=== PATIENT | female | born 1955 | race African-American/Black ===

== ENCOUNTER → 2017-05-27 | Outpatient (CLI) | payer OTHER | END | disposition home or self-care (01) | LOC: NM 08:35 | PROVIDERS: ATTEND Urology | DX: D36.7 Benign neoplasm of other specified sites (principal); E83.52 Hypercalcemia | CPT/HCPCS: 78070; A9500 ==

== ENCOUNTER 2018-08-13 12:35 | Inpatient (IN) | payer MEDICARE, OTHER ==
[~2018-08-13] VITALS: Ht 160 cm; Wt 94.3 kg
[2018-08-13] MEDS ORDERED: VERA120C3 PO (12:42)
[2018-08-13] MEDS ORDERED: SODIUM CHLORIDE 0.9% 1,000 ML IV ONE (13:21)
[2018-08-13] MEDS ORDERED: ONDANSETRON HCL 4MG/2ML INJ IV STA (13:21)
[2018-08-13] MEDS ORDERED: MORPHINE SULFATE 10 MG/ML CPJ IV ONE (13:30)
[2018-08-13 15:27] LABS: CHLORIDE 108 mEq/L (98-107); LYMPHOCYTES % 10.8 % (20.0-50.0); MEAN CORPUSCULAR HEMOGLOBIN 16.6 pg (28.0-32.0); MEAN CORPUSCULAR VOLUME 60.6 fL (81.0-99.0); MEAN PLATELET VOLUME 6.3 fl (7.4-10.4); MONOCYTES % 3.3 % (2.0-8.0); NEUTROPHILS % 85.9 % (40.0-76.0); PLATELET 670 x1000/uL (130-400); RED BLOOD CELL COUNT 4.13 mill/uL (4.2-5.4); RED CELL DISTRIBUTION WIDTH 23.7 % (11.6-14.6)
[2018-08-13 15:33] LABS: HEMOGLOBIN. 6.8 g/dL (12.0-16.0); INR 1.1; PARTIAL THROMBOPLASTIN TIME 22.5 sec (23.4-31.0); PROTHROMBIN TIME 10.9 sec (9.1-11.1)
[2018-08-13 15:53] LABS: PLATELET ESTIMATE INCREASED
[2018-08-13] MEDS ORDERED: VANCOMYCIN 1 G PREMIX 200 ML IV SCH (16:30)
[2018-08-13] MEDS ORDERED: PIPERACILLIN/TAZ 3.375G PREMIX 50 ML IV ONE (16:30)
[2018-08-13] MEDS ORDERED: PIPERACILLIN/TAZOBACTAM 3.375GM/50ML PREMIX IV ONE (19:00)
[2018-08-13] MEDS ORDERED: PIPERACILLIN/TAZ 3.375G PREMIX 50 ML IV SCH (19:10)
[2018-08-14] VITALS (13 sets, daily range): BP systolic 110–147; BP diastolic 45–75
[2018-08-14] MEDS ORDERED: ASPI-1159 PO (01:05)
[2018-08-14] MEDS ORDERED: MAGNESIUM HYDROXIDE 400MG/5ML 30ML UDC PO PRN (01:30)
[2018-08-14] MEDS ORDERED: ZOLPIDEM TARTRATE 5MG TABLET PO PRN (01:30)
[2018-08-14] MEDS ORDERED: ACETAMINOPHEN 325MG TABLET PO PRN (01:30)
[2018-08-14] MEDS ORDERED: IPRATROPIUM/ALBUTEROL 0.5-3(2.5)MG/3ML NEB HHN PRN (01:30)
[2018-08-14] MEDS: MORPHINE SULFATE 4 MG/ML CPJ (NOT FOR IM USE) IV PRN ×3 (01:38→11:18)
[2018-08-14] MEDS: ONDANSETRON HCL 4MG/2ML INJ IV PRN (02:24)
[2018-08-14] MEDS: LEVOFLOXACIN 250MG PREMIX 50 ML IV SCH (02:37)
[2018-08-14] MEDS: VERAPAMIL HCL 120MG TABLET PO SCH ×2 (11:18→21:38)
[2018-08-14] MEDS ORDERED: NYSTATIN POWDER 15GM TOP SCH (12:00)
[2018-08-14] MEDS: NYSTATIN POWDER 15GM TOP SCH ×2 (14:51→21:39)
[2018-08-14 18:19] LABS: HEMATOCRIT 24.3 % (36.0-48.0); HEMOGLOBIN 7.1 g/dL (12.0-16.0)
[2018-08-15] VITALS (13 sets, daily range): BP systolic 108–130; BP diastolic 49–79
[2018-08-15] MEDS: MORPHINE SULFATE 4 MG/ML CPJ (NOT FOR IM USE) IV PRN ×3 (01:04→20:40)
[2018-08-15] MEDS: LEVOFLOXACIN 250MG PREMIX 50 ML IV SCH (02:23)
[2018-08-15 06:14] LABS: BASOPHILS % 0.1 % (0.0-2.0); EOSINOPHILS % 0.3 % (0.0-5.0); HEMATOCRIT. 21.9 % (36.0-48.0); LYMPHOCYTES % 9.4 % (20.0-50.0); MEAN CORPUSCULAR HEMOGLOBIN 18.8 pg (28.0-32.0); MEAN CORPUSCULAR VOLUME 64.5 fL (81.0-99.0); MEAN PLATELET VOLUME 6.3 fl (7.4-10.4); MONOCYTES % 5.9 % (2.0-8.0); NEUTROPHILS % 84.3 % (40.0-76.0); PLATELET 421 x1000/uL (130-400); RED CELL DISTRIBUTION WIDTH 28.2 % (11.6-14.6)
[2018-08-15] MEDS: NYSTATIN POWDER 15GM TOP SCH ×3 (06:31→22:43)
[2018-08-15 07:36] LABS: CHLORIDE 107 mEq/L (98-107)
[2018-08-15 08:18] LABS: HEMOGLOBIN. 6.4 g/dL (12.0-16.0)
[2018-08-15] MEDS: VERAPAMIL HCL 120MG TABLET PO SCH ×2 (08:57→20:40)
[2018-08-15] MEDS: PANTOPRAZOLE SODIUM 40 MG/VIAL IV SCH (10:32)
[2018-08-15] MEDS ORDERED: SODIUM BICARBONATE 4% (2.4MEQ) 5ML VIAL IV ONE (10:45)
[2018-08-15] MEDS ORDERED: LIDOCAINE HCL 1% 20ML VIAL (Pyxis) INJ ONE (10:45)
[2018-08-15 18:53] LABS: TOTAL IRON BINDING CAPACITY 217 ug/dL (250-450)
[2018-08-15] MEDS ORDERED: NA PHOS,M-B/NA PHOS,DI-BA ENEMA 118ML PR NR (19:30)
[2018-08-15 20:30] LABS: EOSINOPHILS % 0.2 % (0.0-5.0); HEMATOCRIT. 28.1 % (36.0-48.0); HEMOGLOBIN. 8.4 g/dL (12.0-16.0); MEAN CORPUSCULAR HEMOGLOBIN 21.3 pg (28.0-32.0); MEAN PLATELET VOLUME 8.2 fl (7.4-10.4); MONOCYTES % 7.1 % (2.0-8.0); NEUTROPHILS % 83.7 % (40.0-76.0); PLATELET 293 x1000/uL (130-400); RED BLOOD CELL COUNT 3.96 mill/uL (4.2-5.4); RED CELL DISTRIBUTION WIDTH 32.8 % (11.6-14.6)
[2018-08-15 21:37] LABS: FOLIC ACID (FOLATE) SERUM 2.9 ng/mL (>5.38); PLATELET ESTIMATE NORMAL
[2018-08-16] VITALS: BP 122/47
[2018-08-16] MEDS: MORPHINE SULFATE 4 MG/ML CPJ (NOT FOR IM USE) IV PRN ×5 (01:40→21:33)
[2018-08-16] MEDS: LEVOFLOXACIN 250MG PREMIX 50 ML IV SCH (02:29)
[2018-08-16 04:00] VITALS: BP 122/67
[2018-08-16 06:44] LABS: HEMATOCRIT. 27.5 % (36.0-48.0); HEMOGLOBIN. 8.6 g/dL (12.0-16.0); MEAN CORPUSCULAR HEMOGLOBIN 21.8 pg (28.0-32.0); MEAN CORPUSCULAR VOLUME 69.9 fL (81.0-99.0); MEAN PLATELET VOLUME 8.2 fl (7.4-10.4); PLATELET 253 x1000/uL (130-400); RED BLOOD CELL COUNT 3.94 mill/uL (4.2-5.4); RED CELL DISTRIBUTION WIDTH 32.6 % (11.6-14.6)
[2018-08-16 06:46] LABS: INR 1.1; PARTIAL THROMBOPLASTIN TIME 25.2 sec (23.4-31.0); PROTHROMBIN TIME 11.4 sec (9.1-11.1)
[2018-08-16 06:53] LABS: CHLORIDE 108 mEq/L (98-107)
[2018-08-16] MEDS: NYSTATIN POWDER 15GM TOP SCH ×3 (07:12→21:20)
[2018-08-16 08:00] VITALS: BP 142/74
[2018-08-16] MEDS: PANTOPRAZOLE SODIUM 40 MG/VIAL IV SCH (11:49)
[2018-08-16] MEDS: VERAPAMIL HCL 120MG TABLET PO SCH ×2 (11:50→20:38)
[2018-08-16 12:00] VITALS: BP 123/62
[2018-08-16 14:12] LABS: CLARITY URINE CLEAR (CLEAR); COLOR URINE YELLOW (YELLOW); KETONES URINE NEGATIVE (NEGATIVE); LEUKOCYTE ESTERASE URINE NEGATIVE (NEGATIVE); NITRITE URINE NEGATIVE (NEGATIVE); OCCULT BLOOD URINE NEGATIVE (NEGATIVE); PROTEIN URINE NEGATIVE (NEGATIVE); SPECIFIC GRAVITY URINE 1.022 (1.005-1.030); UROBILINOGEN URINE 0.2 E.U./dL (0.2-1.0)
[2018-08-16 14:19] LABS: PLATELET ESTIMATE NORMAL
[2018-08-16 16:00] VITALS: BP_SYST 116; BP_SYST 141; BP_DIAS 57; BP_DIAS 78
[2018-08-16] MEDS ORDERED: SORBITOL 70% SOLN 30ML PO NR ×3 (16:00→23:30)
[2018-08-16 20:00] VITALS: BP 117/69
[2018-08-16] MEDS: ONDANSETRON HCL 4MG/2ML INJ IV PRN (21:37)
[2018-08-17] VITALS (7 sets, daily range): BP systolic 117–135; BP diastolic 41–81
[2018-08-17] MEDS: LEVOFLOXACIN 250MG PREMIX 50 ML IV SCH (02:33)
[2018-08-17] MEDS: MORPHINE SULFATE 4 MG/ML CPJ (NOT FOR IM USE) IV PRN ×5 (02:54→22:48)
[2018-08-17] MEDS ORDERED: NA PHOS,M-B/NA PHOS,DI-BA ENEMA 118ML PR NR (05:00)
[2018-08-17] MEDS: NYSTATIN POWDER 15GM TOP SCH ×3 (05:47→22:08)
[2018-08-17 06:54] LABS: EOSINOPHILS % 0.1 % (0.0-5.0); HEMATOCRIT. 29.8 % (36.0-48.0); LYMPHOCYTES % 7.2 % (20.0-50.0); MEAN CORPUSCULAR HEMOGLOBIN 21.5 pg (28.0-32.0); MEAN CORPUSCULAR VOLUME 71.2 fL (81.0-99.0); MEAN PLATELET VOLUME 8.1 fl (7.4-10.4); MONOCYTES % 6.4 % (2.0-8.0); NEUTROPHILS % 86.3 % (40.0-76.0); PLATELET 214 x1000/uL (130-400); RED BLOOD CELL COUNT 4.18 mill/uL (4.2-5.4); RED CELL DISTRIBUTION WIDTH 33.7 % (11.6-14.6)
[2018-08-17 07:01] LABS: INR 1.1; PARTIAL THROMBOPLASTIN TIME 27.4 sec (23.4-31.0); PROTHROMBIN TIME 11.3 sec (9.1-11.1)
[2018-08-17 07:08] LABS: CHLORIDE 113 mEq/L (98-107)
[2018-08-17 07:23] LABS: PHOSPHORUS 2.9 mg/dL (2.5-4.9)
[2018-08-17] MEDS: VERAPAMIL HCL 120MG TABLET PO SCH ×2 (09:00→22:08)
[2018-08-17] MEDS: FOLIC ACID 1MG TABLET PO SCH (09:00)
[2018-08-17] MEDS: PANTOPRAZOLE SODIUM 40 MG/VIAL IV SCH (09:24)
[2018-08-17] MEDS ORDERED: SIMETHICONE 40 MG/0.6 ML 30ML ONE (11:28)
[2018-08-17] MEDS ORDERED: MIDAZOLAM HCL 5 MG/5 ML VIAL IV PRN (11:47)
[2018-08-17] MEDS ORDERED: FENTANYL CITRATE/PF 50MCG/ML 2ML VIAL IV PRN (11:48)
[2018-08-17] MEDS ORDERED: MIDAZOLAM HCL 5 MG/5 ML VIAL ONE (11:50)
[2018-08-17] MEDS ORDERED: FENTANYL CITRATE/PF 50MCG/ML 2ML VIAL ONE (11:50)
[2018-08-17] MEDS ORDERED: SORBITOL 70% SOLN 30ML PO NR ×2 (12:30→18:00)
[2018-08-17] MEDS ORDERED: POTASSIUM CHLORIDE 20MEQ TABLET SR PO NR (12:45)
[2018-08-17] MEDS: SODIUM CHL 0.45% + KCL 20MEQ/L 1,000 ML IV SCH (14:35)
[2018-08-17] MEDS ORDERED: SODIUM CHLORIDE 0.9% 10ML VIAL ONE (15:13)
[2018-08-17] MEDS ORDERED: BISACODYL 5MG TABLET PO NR (17:00)
[2018-08-18] MEDS: ONDANSETRON HCL 4MG/2ML INJ IV PRN ×3 (00:03→11:12)
[2018-08-18] MEDS: LEVOFLOXACIN 250MG PREMIX 50 ML IV SCH (03:20)
[2018-08-18] MEDS: SODIUM CHL 0.45% + KCL 20MEQ/L 1,000 ML IV SCH (03:20)
[2018-08-18] MEDS: MORPHINE SULFATE 4 MG/ML CPJ (NOT FOR IM USE) IV PRN ×4 (03:21→19:15)
[2018-08-18 03:56] VITALS: BP 148/99
[2018-08-18] MEDS: NYSTATIN POWDER 15GM TOP SCH ×2 (06:23→14:00)
[2018-08-18] MEDS ORDERED: OMEPRAZOLE 20MG CAPSULE EXTENDED RELEASE PO SCH (06:45)
[2018-08-18] MEDS ORDERED: SORBITOL 70% SOLN 30ML PO NR (07:00)
[2018-08-18 07:35] LABS: BASOPHILS % 0.1 % (0.0-2.0); EOSINOPHILS % 0.2 % (0.0-5.0); HEMATOCRIT. 32.4 % (36.0-48.0); HEMOGLOBIN. 9.4 g/dL (12.0-16.0); LYMPHOCYTES % 8.5 % (20.0-50.0); MEAN CORPUSCULAR HEMOGLOBIN 21.2 pg (28.0-32.0); MEAN CORPUSCULAR VOLUME 72.8 fL (81.0-99.0); MEAN PLATELET VOLUME 8.1 fl (7.4-10.4); MONOCYTES % 5.8 % (2.0-8.0); NEUTROPHILS % 85.4 % (40.0-76.0); PLATELET 184 x1000/uL (130-400); RED BLOOD CELL COUNT 4.45 mill/uL (4.2-5.4); RED CELL DISTRIBUTION WIDTH 34.1 % (11.6-14.6)
[2018-08-18 07:41] LABS: CHLORIDE 119 mEq/L (98-107)
[2018-08-18 08:00] VITALS: BP 148/90
[2018-08-18] MEDS: VERAPAMIL HCL 120MG TABLET PO SCH ×2 (09:12→20:24)
[2018-08-18] MEDS: FOLIC ACID 1MG TABLET PO SCH (09:12)
[2018-08-18] MEDS ORDERED: DEXTROSE 5% WATER 1,000 ML IV SCH (09:45)
[2018-08-18] MEDS: NA PHOS,M-B/NA PHOS,DI-BA ENEMA 118ML PR NR ×3 (10:45→10:57)
[2018-08-18 12:00] VITALS: BP 133/77
[2018-08-18] MEDS ORDERED: FENTANYL CITRATE/PF 50MCG/ML 2ML VIAL IV PRN (15:30)
[2018-08-18] MEDS ORDERED: MIDAZOLAM HCL 5 MG/5 ML VIAL IV PRN (15:31)
[2018-08-18] MEDS ORDERED: MIDAZOLAM HCL 5 MG/5 ML VIAL ONE (15:36)
[2018-08-18] MEDS ORDERED: SODIUM CHLORIDE 0.9% 10ML VIAL ONE (15:36)
[2018-08-18] MEDS ORDERED: FENTANYL CITRATE/PF 50MCG/ML 2ML VIAL ONE (15:36)
[2018-08-18 17:00] VITALS: BP 150/91
[2018-08-18] MEDS ORDERED: DOCUSATE SODIUM 100MG CAPSULE PO SCH (17:00)
[2018-08-18] MEDS ORDERED: FERROUS SULFATE 325MG TABLET PO SCH (17:15)
[2018-08-18 20:00] VITALS: BP 149/67
[2018-08-19 19:11] LABS: ANTI-NUCLEAR ANTIBODIES DIRECT Positive (Negative)
[2018-08-22 10:08] LABS: HGB A 98.4 % (96.4-98.8); HGB A2 1.6 % (1.8-3.2); HGB SOLUBILITY Negative (Negative)
== END 2018-08-18 20:55 | DRG 871 ==
LOC: ER 12:35 → 5WST 17:43 → EDBEDREQ 17:48 → EDBEDREQTM 17:48 → EDBEDREQ 17:50 → ENRESERV 18:31 → EDBEDREQ 18:46
PROVIDERS: ADMIT Specialist; ATTEND Specialist
PROC: 30233N1 Transfusion of Nonautologous Red Blood Cells into Peripheral Vein, Percutaneous Approach (ICD-10-PCS; principal; 2018-08-13)
PROC: 02HV33Z Insertion of Infusion Device into Superior Vena Cava, Percutaneous Approach (ICD-10-PCS; 2018-08-15)
PROC: B5181ZA Fluoroscopy of Superior Vena Cava using Low Osmolar Contrast, Guidance (ICD-10-PCS; 2018-08-15)
PROC: B548ZZA Ultrasonography of Superior Vena Cava, Guidance (ICD-10-PCS; 2018-08-15)
PROC: 0DB68ZX Excision of Stomach, Via Natural or Artificial Opening Endoscopic, Diagnostic (ICD-10-PCS; 2018-08-17)
PROC: 0DBL8ZX Excision of Transverse Colon, Via Natural or Artificial Opening Endoscopic, Diagnostic (ICD-10-PCS; 2018-08-18)
DX: A41.9 Sepsis, unspecified organism (principal); E43 Unspecified severe protein-calorie malnutrition; E87.0 Hyperosmolality and hypernatremia; E87.2 Acidosis; K22.10 Ulcer of esophagus without bleeding; K63.3 Ulcer of intestine; N20.9 Urinary calculus, unspecified; I10 Essential (primary) hypertension; J45.909 Unspecified asthma, uncomplicated; D64.9 Anemia, unspecified; D50.0 Iron deficiency anemia secondary to blood loss (chronic); E53.8 Deficiency of other specified B group vitamins; E88.09 Other disorders of plasma-protein metabolism, not elsewhere classified; K29.60 Other gastritis without bleeding; W18.30XA Fall on same level, unspecified, initial encounter; K44.9 Diaphragmatic hernia without obstruction or gangrene; K56.41 Fecal impaction; Z87.442 Personal history of urinary calculi; Z90.49 Acquired absence of other specified parts of digestive tract; Z90.5 Acquired absence of kidney; Y93.89 Activity, other specified; Z85.038 Personal history of other malignant neoplasm of large intestine; Y92.89 Other specified places as the place of occurrence of the external cause; Y99.8 Other external cause status; Z68.36 Body mass index [BMI] 36.0-36.9, adult
CPT/HCPCS: 36415; 36430; 36569; 71045; 72170; 73560; 74018; 76700; 76937; 77001; 80048; 82270; 82378; 82607; 82728; 82746; 83010; 83021; 83540; 83550; 83605; 83735; 83880; 84100; 84134; 84484; 85014; 85018; 85044; 85660; 86038; 86430; 86850; 86900; 86920; 88305; 88312; 88313; 93005; 93970; 96365; 96366; 96375; 97162; 97530; 99285; A6261; C1725; C9113; J1956; J2250; J2270; J2405; J2543; J3010; J3370; J3480; J3490; J7030; J7040; J7050; J7070; P9016

== ENCOUNTER 2018-08-18 20:40 | Inpatient (IN) | payer MEDICARE ==
[~2018-08-18] VITALS: Ht 160 cm; Wt 89.8 kg
[2018-08-18 20:40] VITALS: BP 125/80
[~2018-08-18 20:40] MED LIST: ASPI-1159 PO; VERA120C3 PO
[2018-08-18 20:50] VITALS: BP 125/80
[2018-08-18] MEDS ORDERED: IPRATROPIUM/ALBUTEROL 0.5-3(2.5)MG/3ML NEB HHN PRN (22:15)
[2018-08-18] MEDS ORDERED: ACETAMINOPHEN 325MG TABLET PO PRN (22:30)
[2018-08-18] MEDS ORDERED: MAGNESIUM HYDROXIDE 400MG/5ML 30ML UDC PO PRN (22:30)
[2018-08-18] MEDS ORDERED: ZOLPIDEM TARTRATE 5MG TABLET PO PRN (22:30)
[2018-08-18] MEDS ORDERED: DEXTROSE 5% WATER 1,000 ML IV SCH (23:30)
[2018-08-19] MEDS: MORPHINE SULFATE 4 MG/ML CPJ (NOT FOR IM USE) IV PRN ×4 (00:51→23:24)
[2018-08-19] MEDS ORDERED: LEVOFLOXACIN 250MG TABLET JT SCH (03:00)
[2018-08-19] MEDS: LEVOFLOXACIN 250MG PREMIX 50 ML IV SCH (03:33)
[2018-08-19] MEDS: NYSTATIN POWDER 15GM TOP SCH ×3 (06:00→22:26)
[2018-08-19] MEDS: OMEPRAZOLE 20MG CAPSULE EXTENDED RELEASE PO SCH (07:00)
[2018-08-19 08:00] VITALS: BP 165/69
[2018-08-19] MEDS: FOLIC ACID 1MG TABLET PO SCH (08:23)
[2018-08-19] MEDS: DOCUSATE SODIUM 100MG CAPSULE PO SCH ×2 (08:23→17:14)
[2018-08-19] MEDS: FERROUS SULFATE 325MG TABLET PO SCH ×2 (08:23→12:58)
[2018-08-19] MEDS ORDERED: FOLIC ACID 1MG TABLET PO SCH (10:00)
[2018-08-19 10:26] LABS: BASOPHILS % 0.1 % (0.0-2.0); EOSINOPHILS % 0.7 % (0.0-5.0); HEMATOCRIT. 28.6 % (36.0-48.0); HEMOGLOBIN. 8.7 g/dL (12.0-16.0); LYMPHOCYTES % 9.6 % (20.0-50.0); MEAN CORPUSCULAR HEMOGLOBIN 22.2 pg (28.0-32.0); MEAN CORPUSCULAR VOLUME 73.1 fL (81.0-99.0); MEAN PLATELET VOLUME 8.2 fl (7.4-10.4); MONOCYTES % 5.1 % (2.0-8.0); NEUTROPHILS % 84.5 % (40.0-76.0); PLATELET 136 x1000/uL (130-400); RED CELL DISTRIBUTION WIDTH 34.3 % (11.6-14.6)
[2018-08-19 10:37] LABS: CHLORIDE 114 mEq/L (98-107)
[2018-08-19] MEDS: VERAPAMIL HCL 120MG TABLET PO SCH ×2 (11:02→22:25)
[2018-08-19] MEDS: POTASSIUM CHLORIDE 20MEQ TABLET SR PO SCH (12:55)
[2018-08-19 13:37] LABS: CLARITY URINE TURBID (CLEAR); COLOR URINE DARK YELLOW (YELLOW); KETONES URINE NEGATIVE (NEGATIVE); LEUKOCYTE ESTERASE URINE 3+ (NEGATIVE); NITRITE URINE NEGATIVE (NEGATIVE); OCCULT BLOOD URINE 3+ (NEGATIVE); PROTEIN URINE 3+ (NEGATIVE); SPECIFIC GRAVITY URINE 1.022 (1.005-1.030)
[2018-08-19 20:00] VITALS: BP 127/51
[2018-08-20] MEDS: LEVOFLOXACIN 250MG PREMIX 50 ML IV SCH (02:38)
[2018-08-20] MEDS: NYSTATIN POWDER 15GM TOP SCH ×3 (06:00→21:22)
[2018-08-20] MEDS: OMEPRAZOLE 20MG CAPSULE EXTENDED RELEASE PO SCH (06:54)
[2018-08-20] MEDS: MORPHINE SULFATE 4 MG/ML CPJ (NOT FOR IM USE) IV PRN ×2 (06:55→18:41)
[2018-08-20 08:00] VITALS: BP 121/64
[2018-08-20] MEDS: FOLIC ACID 1MG TABLET PO SCH (09:54)
[2018-08-20] MEDS: VERAPAMIL HCL 120MG TABLET PO SCH ×2 (09:54→21:21)
[2018-08-20] MEDS: POTASSIUM CHLORIDE 20MEQ TABLET SR PO SCH (09:54)
[2018-08-20] MEDS: DOCUSATE SODIUM 100MG CAPSULE PO SCH ×2 (09:54→16:39)
[2018-08-20 20:00] VITALS: BP 130/54
[2018-08-21] MEDS: LEVOFLOXACIN 250MG PREMIX 50 ML IV SCH (02:51)
[2018-08-21] MEDS: MORPHINE SULFATE 4 MG/ML CPJ (NOT FOR IM USE) IV PRN ×3 (02:51→21:39)
[2018-08-21] MEDS: NYSTATIN POWDER 15GM TOP SCH ×3 (06:10→21:38)
[2018-08-21] MEDS: OMEPRAZOLE 20MG CAPSULE EXTENDED RELEASE PO SCH (06:10)
[2018-08-21 08:05] VITALS: BP 141/57
[2018-08-21] MEDS: POTASSIUM CHLORIDE 20MEQ TABLET SR PO SCH (09:14)
[2018-08-21] MEDS: FOLIC ACID 1MG TABLET PO SCH (09:15)
[2018-08-21] MEDS: VERAPAMIL HCL 120MG TABLET PO SCH ×2 (09:15→21:37)
[2018-08-21] MEDS: DOCUSATE SODIUM 100MG CAPSULE PO SCH (09:15)
[2018-08-21] MEDS: DOCUSATE SODIUM 250MG CAPSULE PO SCH (17:47)
[2018-08-21 20:00] VITALS: BP 126/64
[2018-08-21] MEDS: ONDANSETRON HCL 4MG/2ML INJ IV PRN (21:51)
[2018-08-22 06:22] VITALS: BP 108/58
[2018-08-22] MEDS: OMEPRAZOLE 20MG CAPSULE EXTENDED RELEASE PO SCH (06:28)
[2018-08-22] MEDS: NYSTATIN POWDER 15GM TOP SCH ×3 (06:29→22:19)
[2018-08-22 07:51] VITALS: BP 133/61
[2018-08-22] MEDS: POTASSIUM CHLORIDE 20MEQ TABLET SR PO SCH (08:20)
[2018-08-22] MEDS: ONDANSETRON HCL 4MG/2ML INJ IV PRN ×2 (08:20→14:24)
[2018-08-22] MEDS: FOLIC ACID 1MG TABLET PO SCH (08:20)
[2018-08-22] MEDS: VERAPAMIL HCL 120MG TABLET PO SCH ×2 (08:20→22:20)
[2018-08-22] MEDS: DOCUSATE SODIUM 250MG CAPSULE PO SCH ×2 (08:20→16:07)
[2018-08-22] MEDS: MORPHINE SULFATE 4 MG/ML CPJ (NOT FOR IM USE) IV PRN ×3 (08:21→22:19)
[2018-08-22] MEDS: LIDOCAINE HCL 4% CREAM 76GM TUBE TP SCH ×2 (11:43→16:07)
[2018-08-22 20:00] VITALS: BP 106/66
[2018-08-23] MEDS: MORPHINE SULFATE 4 MG/ML CPJ (NOT FOR IM USE) IV PRN (02:41)
[2018-08-23] MEDS: OMEPRAZOLE 20MG CAPSULE EXTENDED RELEASE PO SCH (06:28)
[2018-08-23] MEDS: NYSTATIN POWDER 15GM TOP SCH ×2 (06:45→13:07)
[2018-08-23 08:10] VITALS: BP 117/59
[2018-08-23] MEDS: VERAPAMIL HCL 120MG TABLET PO SCH ×2 (08:41→20:17)
[2018-08-23] MEDS: TRAMADOL 50MG TABLET PO PRN ×2 (08:41→18:46)
[2018-08-23] MEDS: ZINC SULFATE 220 MG ( 50 ) CAPSULE PO SCH (08:42)
[2018-08-23] MEDS: ASCORBIC ACID 250 MG TABLET PO SCH ×2 (08:42→20:16)
[2018-08-23] MEDS: FOLIC ACID 1MG TABLET PO SCH (08:42)
[2018-08-23] MEDS: POTASSIUM CHLORIDE 20MEQ TABLET SR PO SCH ×2 (08:42→16:37)
[2018-08-23] MEDS: MULTIVITAMINS,THER W-MINERALS TABLET PO SCH (08:42)
[2018-08-23] MEDS: DOCUSATE SODIUM 250MG CAPSULE PO SCH ×2 (08:42→16:37)
[2018-08-23] MEDS: LIDOCAINE HCL 4% CREAM 76GM TUBE TP SCH ×2 (08:43→16:37)
[2018-08-23 09:27] LABS: BASOPHILS % 0.3 % (0.0-2.0); EOSINOPHILS % 0.6 % (0.0-5.0); HEMATOCRIT. 25.7 % (36.0-48.0); HEMOGLOBIN. 7.9 g/dL (12.0-16.0); LYMPHOCYTES % 12.6 % (20.0-50.0); MEAN CORPUSCULAR HEMOGLOBIN 22.4 pg (28.0-32.0); MEAN PLATELET VOLUME 8.3 fl (7.4-10.4); MONOCYTES % 6.6 % (2.0-8.0); NEUTROPHILS % 79.9 % (40.0-76.0); PLATELET 222 x1000/uL (130-400); RED BLOOD CELL COUNT 3.53 mill/uL (4.2-5.4); RED CELL DISTRIBUTION WIDTH 34.6 % (11.6-14.6)
[2018-08-23 09:38] LABS: CHLORIDE 113 mEq/L (98-107)
[2018-08-23 10:23] LABS: PLATELET ESTIMATE NORMAL
[2018-08-23] MEDS ORDERED: BISACODYL 5MG TABLET PO PRN (17:00)
[2018-08-23 20:00] VITALS: BP 112/60
[2018-08-24] MEDS: TRAMADOL 50MG TABLET PO PRN (00:53)
[2018-08-24] MEDS: MORPHINE SULFATE 4 MG/ML CPJ (NOT FOR IM USE) IV PRN ×2 (01:00→11:19)
[2018-08-24] MEDS: NYSTATIN POWDER 15GM TOP SCH ×4 (02:57→22:00)
[2018-08-24] MEDS: OMEPRAZOLE 20MG CAPSULE EXTENDED RELEASE PO SCH (06:46)
[2018-08-24] MEDS: MULTIVITAMINS,THER W-MINERALS TABLET PO SCH (08:17)
[2018-08-24] MEDS: ZINC SULFATE 220 MG ( 50 ) CAPSULE PO SCH (08:17)
[2018-08-24] MEDS: POTASSIUM CHLORIDE 20MEQ TABLET SR PO SCH ×2 (08:17→17:38)
[2018-08-24] MEDS: VERAPAMIL HCL 120MG TABLET PO SCH ×2 (08:18→21:46)
[2018-08-24] MEDS: FOLIC ACID 1MG TABLET PO SCH (08:18)
[2018-08-24] MEDS: ASCORBIC ACID 250 MG TABLET PO SCH ×2 (08:21→21:43)
[2018-08-24] MEDS: LIDOCAINE HCL 4% CREAM 76GM TUBE TP SCH ×2 (08:21→17:38)
[2018-08-24] MEDS: DOCUSATE SODIUM 250MG CAPSULE PO SCH ×2 (08:21→17:38)
[2018-08-24 08:26] VITALS: BP 103/47
[2018-08-24] MEDS ORDERED: TRAMADOL 50MG TABLET PO PRN (13:45)
[2018-08-24 20:00] VITALS: BP_SYST 113; BP_SYST 127; BP_DIAS 60; BP_DIAS 66
[2018-08-24] MEDS: HYDROCODONE/ACETAMINOPHEN 5/325MG TABLET PO PRN (21:45)
[2018-08-25] MEDS: OMEPRAZOLE 20MG CAPSULE EXTENDED RELEASE PO SCH (07:17)
[2018-08-25] MEDS: NYSTATIN POWDER 15GM TOP SCH ×3 (07:17→21:39)
[2018-08-25] MEDS: MULTIVITAMINS,THER W-MINERALS TABLET PO SCH (08:29)
[2018-08-25] MEDS: VERAPAMIL HCL 120MG TABLET PO SCH ×2 (08:29→20:26)
[2018-08-25] MEDS: FOLIC ACID 1MG TABLET PO SCH (08:29)
[2018-08-25] MEDS: ASCORBIC ACID 250 MG TABLET PO SCH ×2 (08:29→20:26)
[2018-08-25] MEDS: DOCUSATE SODIUM 250MG CAPSULE PO SCH ×2 (08:29→18:13)
[2018-08-25] MEDS: POTASSIUM CHLORIDE 20MEQ TABLET SR PO SCH ×2 (08:30→18:13)
[2018-08-25] MEDS: LIDOCAINE HCL 4% CREAM 76GM TUBE TP SCH ×2 (08:30→18:13)
[2018-08-25] MEDS: ZINC SULFATE 220 MG ( 50 ) CAPSULE PO SCH (08:30)
[2018-08-25] MEDS: HYDROCODONE/ACETAMINOPHEN 5/325MG TABLET PO PRN ×2 (11:18→20:27)
[2018-08-25 20:00] VITALS: BP 123/61
[2018-08-26] MEDS: NYSTATIN POWDER 15GM TOP SCH ×2 (06:15→19:36)
[2018-08-26] MEDS: OMEPRAZOLE 20MG CAPSULE EXTENDED RELEASE PO SCH (06:15)
[2018-08-26 08:38] VITALS: BP 125/71
[2018-08-26] MEDS: ASCORBIC ACID 250 MG TABLET PO SCH (08:46)
[2018-08-26] MEDS: MULTIVITAMINS,THER W-MINERALS TABLET PO SCH (08:46)
[2018-08-26] MEDS: VERAPAMIL HCL 120MG TABLET PO SCH (08:47)
[2018-08-26] MEDS: DOCUSATE SODIUM 250MG CAPSULE PO SCH ×2 (08:47→19:35)
[2018-08-26] MEDS: POTASSIUM CHLORIDE 20MEQ TABLET SR PO SCH ×2 (08:48→19:35)
[2018-08-26] MEDS: ZINC SULFATE 220 MG ( 50 ) CAPSULE PO SCH (08:48)
[2018-08-26] MEDS: LIDOCAINE HCL 4% CREAM 76GM TUBE TP SCH ×2 (08:49→19:36)
[2018-08-26] MEDS: FOLIC ACID 1MG TABLET PO SCH (08:51)
[2018-08-26 15:39] VITALS: BP 108/64
[2018-08-26 20:00] VITALS: BP 123/63
== END 2018-08-26 21:05 | DRG 947 ==
PROVIDERS: ADMIT Psychiatry & Neurology Neurology; ATTEND Specialist
DX: R53.81 Other malaise (principal); E43 Unspecified severe protein-calorie malnutrition; K22.10 Ulcer of esophagus without bleeding; D62 Acute posthemorrhagic anemia; K62.6 Ulcer of anus and rectum; I10 Essential (primary) hypertension; D63.8 Anemia in other chronic diseases classified elsewhere; E21.3 Hyperparathyroidism, unspecified; J45.909 Unspecified asthma, uncomplicated; K44.9 Diaphragmatic hernia without obstruction or gangrene; K56.41 Fecal impaction; M19.90 Unspecified osteoarthritis, unspecified site; D30.00 Benign neoplasm of unspecified kidney; W18.39XA Other fall on same level, initial encounter; N20.9 Urinary calculus, unspecified; Z60.2 Problems related to living alone; F41.9 Anxiety disorder, unspecified; F32.9 Major depressive disorder, single episode, unspecified; F06.31 Mood disorder due to known physiological condition with depressive features; E87.5 Hyperkalemia; K29.50 Unspecified chronic gastritis without bleeding; Z85.038 Personal history of other malignant neoplasm of large intestine; Z87.442 Personal history of urinary calculi; Z90.49 Acquired absence of other specified parts of digestive tract; Z90.5 Acquired absence of kidney; Y93.89 Activity, other specified; Y92.89 Other specified places as the place of occurrence of the external cause; Y99.8 Other external cause status; Z79.899 Other long term (current) drug therapy; Z79.82 Long term (current) use of aspirin; Z68.35 Body mass index [BMI] 35.0-35.9, adult
CPT/HCPCS: 36415; 80048; 82962; 93971; 97110; 97112; 97116; 97150; 97162; 97166; 97530; 97535; J1956; J2270; J2405; J7040; J7070

== ENCOUNTER 2019-08-22 21:03 | Inpatient (IN) | payer OTHER ==
[~2019-08-22] VITALS: Ht 162.6 cm; Wt 115.8 kg
[~2019-08-22 21:03] MED LIST changes: +ALBU4TAB6 MT; -ASPI-1159 PO; +CALC500T35 PO; +CHOL100022 PO; +FLUT1BLS INH; +LOV40 SQ; +NYST15OI TP; +POLY17PO3 PO; +REV20 PO; -VERA120C3 PO; +VERA120T PO
[2019-08-22] MEDS ORDERED: PANTOPRAZOLE SODIUM 40 MG/VIAL IV STA (21:31)
[2019-08-22] MEDS ORDERED: PANTOPRAZOLE 80 MG in SODIUM CHLORIDE 0.9% 80 ML IV ONE (21:45)
[2019-08-22] MEDS ORDERED: OCTREOTIDE ACETATE 50 MCG/ML 1ML IV ONE (21:45)
[2019-08-22 22:02] LABS: HEMATOCRIT. 24.5 % (36.0-48.0); HEMOGLOBIN. 7.4 g/dL (12.0-16.0); MEAN CORPUSCULAR HEMOGLOBIN 22.2 pg (28.0-32.0); MEAN CORPUSCULAR VOLUME 73.4 fL (81.0-99.0); MEAN PLATELET VOLUME 6.7 fl (7.4-10.4); PLATELET 650 x1000/uL (130-400); RED BLOOD CELL COUNT 3.34 mill/uL (4.2-5.4); RED CELL DISTRIBUTION WIDTH 30.1 % (11.6-14.6)
[2019-08-22 22:08] LABS: CHLORIDE 96 mEq/L (98-107)
[2019-08-22 22:10] LABS: INR 1.1; PROTHROMBIN TIME 11.1 sec (9.6-11.0)
[2019-08-22 22:13] LABS: ETHANOL BLOOD < 10 mg/dL
[2019-08-22] MEDS ORDERED: OCTREOTIDE 1,000 MCG in SODIUM CHLORIDE 0.9% 100 ML IV ONE ×2 (22:15→23:00)
[2019-08-22 22:17] LABS: NUCLEATED RED BLOOD CELLS 4 /100 WBC; PLATELET ESTIMATE INCREASED
[2019-08-22] MEDS ORDERED: VANCOMYCIN 1 G PREMIX 200 ML IV NR (22:30)
[2019-08-22] MEDS ORDERED: PIPERACILLIN/TAZ 3.375G PREMIX 50 ML IV ONE (22:30)
[2019-08-22] MEDS ORDERED: ALBUTEROL (0.083%) 2.5MG/3ML NEB HHN STA (22:31)
[2019-08-22] MEDS ORDERED: INSULIN REGULAR (HUMULIN R) 300UNITS/3ML IV ONE (22:45)
[2019-08-22] MEDS ORDERED: CALCIUM GLUCONATE 1,000 MG in DEXT 5% WATER 100 ML IV ONE (22:45)
[2019-08-22] MEDS ORDERED: SODIUM BICARBONATE 8.4% 1 MEQ/ML 50ML SYR IV ONE (22:45)
[2019-08-22] MEDS ORDERED: DEXTROSE 50% WATER 50ML SYRINGE IV ONE (22:45)
[2019-08-22] MEDS ORDERED: PIPERACILLIN/TAZOBACTAM 2.25 G in DEXTROSE 5% WATER 50 ML IV NR (23:00)
[2019-08-22 23:50] VITALS: BP 106/69
[2019-08-22 23:57] VITALS: BP 106/69
[2019-08-23] VITALS (90 sets, daily range): BP systolic 35–176; BP diastolic 12–144
[2019-08-23 00:23] LABS: PHOSPHORUS 7.2 mg/dL (2.5-4.9)
[2019-08-23] MEDS ORDERED: VANCOMYCIN 1 G PREMIX 200 ML IV STA (00:50)
[2019-08-23] MEDS ORDERED: OCTREOTIDE 1,000 MCG in SODIUM CHLORIDE 0.9% 98 ML IV PRN (01:00)
[2019-08-23] MEDS ORDERED: FENTANYL CITRATE/PF 500 MCG in SODIUM CHLORIDE 0.9% 40 ML IV PRN (01:00)
[2019-08-23] MEDS ORDERED: DEXTROSE 50% WATER 50ML SYRINGE IV PRN (01:00)
[2019-08-23] MEDS ORDERED: PIPERACILLIN/TAZOBACTAM 3.375GM/50ML PREMIX IV ONE (01:00)
[2019-08-23] MEDS ORDERED: SODIUM BICARBONATE 8.4% 1 MEQ/ML 50ML SYR IV NR ×2 (02:00→03:00)
[2019-08-23] MEDS ORDERED: SODIUM POLYSTYRENE SULFONATE 15 G/60 ML BOT PR NR ×2 (02:00)
[2019-08-23] MEDS ORDERED: DEXT 5%/0.45% NACL 1000ML 1,000 ML IV SCH (02:00)
[2019-08-23] MEDS ORDERED: DEXTROSE 50% WATER 50ML SYRINGE IV NR ×2 (02:00→03:00)
[2019-08-23] MEDS ORDERED: INSULIN REGULAR (HUMULIN R) UD 100 UNITS/ML SYR IV NR ×2 (02:00→03:00)
[2019-08-23] MEDS: PIPERACILLIN/TAZOBACTAM 2.25 G in DEXTROSE 5% WATER 50 ML IV SCH ×3 (02:26→17:47)
[2019-08-23] MEDS ORDERED: VANCOMYCIN 1500MG in DEXTROSE 5% WATER 250ML IV NR (03:00)
[2019-08-23] MEDS ORDERED: INSULIN REGULAR (HUMULIN R) 300UNITS/3ML IV NR (03:02)
[2019-08-23] MEDS ORDERED: OCTREOTIDE 1,000 MCG in SODIUM CHLORIDE 0.9% 98 ML IV SCH (04:00)
[2019-08-23] MEDS: BLOOD SUGAR DIAGNOSTIC STRIP TEST SCH ×6 (04:27→23:59)
[2019-08-23] MEDS ORDERED: FUROSEMIDE 40MG/4ML VIAL IVP NR (06:00)
[2019-08-23] MEDS: PANTOPRAZOLE 80 MG in SODIUM CHLORIDE 0.9% 100 ML IV SCH ×2 (06:00→17:47)
[2019-08-23 07:28] LABS: HEMOGLOBIN. 10.2 g/dL (12.0-16.0); MEAN CORPUSCULAR HEMOGLOBIN 24.5 pg (28.0-32.0); MEAN CORPUSCULAR VOLUME 79.1 fL (81.0-99.0); MEAN PLATELET VOLUME 6.7 fl (7.4-10.4); PLATELET 578 x1000/uL (130-400); RED BLOOD CELL COUNT 4.17 mill/uL (4.2-5.4)
[2019-08-23] MEDS ORDERED: PNEUMOCOCCAL 23-VAL P-SAC VAC 0.5 ML IM ONE (08:00)
[2019-08-23] MEDS ORDERED: LIDOCAINE HCL 1% 20ML VIAL (Pyxis) INJ ONE (08:16)
[2019-08-23 08:44] LABS: PLATELET ESTIMATE INCREASED
[2019-08-23 08:51] LABS: CLARITY URINE TURBID (CLEAR); COLOR URINE DARK YELLOW (YELLOW); KETONES URINE NEGATIVE (NEGATIVE); LEUKOCYTE ESTERASE URINE 3+ (NEGATIVE); NITRITE URINE NEGATIVE (NEGATIVE); OCCULT BLOOD URINE 3+ (NEGATIVE); PROTEIN URINE 2+ (NEGATIVE); SPECIFIC GRAVITY URINE 1.019 (1.005-1.030); UROBILINOGEN URINE 0.2 E.U./dL (0.2-1.0)
[2019-08-23] MEDS ORDERED: INFLUENZA VIRUS VACCINE(AFLURIA) 0.5ML SYR IM ONE (10:00)
[2019-08-23 12:44] LABS: BG BASE EXCESS -5.2 mmol/L (-2.0-2.0); BG CARBOXYHEMOGLOBIN 1.1 % (0.5-1.5); BG DEOXYHEMOGLOBIN 4.3 % (0.0-5.0); BG FRACTION INSPIRED OXYGEN 36; BG HCO3 ACT 20.2 mmol/L (22.0-26.0); BG METHEMOGLOBIN 0.3 % (0.0-1.5); BG OXYGEN SATURATION 95.6 % (92.0-98.5); BG OXYHEMOGLOBIN 94.3 % (94.0-97.0); BG PCO2 39.1 mmHg (35.0-45.0); BG PH 7.332 (7.350-7.450); BG PO2 79.8 mmHg (75.0-100.0); BG SAMPLE SITE RIGHT BRACHIAL; BG TOTAL HEMOGLOBIN 12.3 g/dL (12.0-18.0); BG VENT MODE NASAL CANNULA
[2019-08-23] MEDS ORDERED: DEXT 5%/0.9% NACL 1,000 ML IV SCH (13:00)
[2019-08-23] MEDS ORDERED: PHENYLEPHRINE 40 MG in DEXT 5% WATER 246 ML IV PRN (13:45)
[2019-08-23] MEDS ORDERED: HYDRALAZINE 20MG/ML VIAL IV PRN (14:30)
[2019-08-23] MEDS ORDERED: IPRATROPIUM/ALBUTEROL 0.5-3(2.5)MG/3ML NEB HHN PRN (14:30)
[2019-08-23] MEDS ORDERED: LACTULOSE 20G/30ML UDC PO PRN (14:30)
[2019-08-23] MEDS: NOREPINEPHRINE 16 MG in DEXT 5% WATER 234 ML IV PRN (15:00)
[2019-08-23 15:17] LABS: HEMATOCRIT 29.1 % (36.0-48.0); HEMOGLOBIN 9.4 g/dL (12.0-16.0)
[2019-08-23] MEDS ORDERED: VANCOMYCIN 750 MG PREMIX 150 ML IV NR (18:00)
[2019-08-23 19:30] LABS: HEMATOCRIT 30.4 % (36.0-48.0); HEMOGLOBIN 9.5 g/dL (12.0-16.0)
[2019-08-23] MEDS: MORPHINE SULFATE 2 MG/ML CPJ (NOT FOR IM USE) IV PRN (20:33)
[2019-08-23] MEDS: IPRATROPIUM/ALBUTEROL 0.5-3(2.5)MG/3ML NEB HHN SCH ×2 (21:09→21:10)
[2019-08-23] MEDS: BUDESONIDE 0.5MG/2ML NEB HHN SCH (21:10)
[2019-08-23 23:15] LABS: HEMATOCRIT 30.4 % (36.0-48.0); HEMOGLOBIN 9.4 g/dL (12.0-16.0)
[2019-08-24] VITALS (104 sets, daily range): BP systolic 55–158; BP diastolic 17–120
[2019-08-24] MEDS: MORPHINE SULFATE 2 MG/ML CPJ (NOT FOR IM USE) IV PRN (00:54)
[2019-08-24] MEDS: PIPERACILLIN/TAZOBACTAM 2.25 G in DEXTROSE 5% WATER 50 ML IV SCH ×3 (02:10→17:01)
[2019-08-24] MEDS: IPRATROPIUM/ALBUTEROL 0.5-3(2.5)MG/3ML NEB HHN SCH ×4 (02:33→21:05)
[2019-08-24] MEDS: PANTOPRAZOLE 80 MG in SODIUM CHLORIDE 0.9% 100 ML IV SCH ×2 (03:06→13:53)
[2019-08-24 03:29] LABS: HEMATOCRIT. 28.5 % (36.0-48.0); MEAN CORPUSCULAR HEMOGLOBIN 24.5 pg (28.0-32.0); MEAN CORPUSCULAR VOLUME 77.2 fL (81.0-99.0); MEAN PLATELET VOLUME 6.4 fl (7.4-10.4); PLATELET 388 x1000/uL (130-400); RED BLOOD CELL COUNT 3.69 mill/uL (4.2-5.4); RED CELL DISTRIBUTION WIDTH 31.5 % (11.6-14.6)
[2019-08-24 03:30] LABS: CHLORIDE 99 mEq/L (98-107)
[2019-08-24 03:39] LABS: PHOSPHORUS 5.1 mg/dL (2.5-4.9)
[2019-08-24 03:40] LABS: PARTIAL THROMBOPLASTIN TIME 36.6 sec (23.4-31.0); PROTHROMBIN TIME 10.6 sec (9.6-11.0)
[2019-08-24 04:19] LABS: PLATELET ESTIMATE NORMAL
[2019-08-24] MEDS: BLOOD SUGAR DIAGNOSTIC STRIP TEST SCH ×6 (04:31→23:59)
[2019-08-24] MEDS: NOREPINEPHRINE 16 MG in DEXT 5% WATER 234 ML IV PRN (07:53)
[2019-08-24 08:12] LABS: BG BASE EXCESS -2.6 mmol/L (-2.0-2.0); BG CARBOXYHEMOGLOBIN 0.9 % (0.5-1.5); BG DEOXYHEMOGLOBIN 2.6 % (0.0-5.0); BG FRACTION INSPIRED OXYGEN 32; BG HCO3 ACT 22.4 mmol/L (22.0-26.0); BG METHEMOGLOBIN 0.4 % (0.0-1.5); BG OXYGEN SATURATION 97.4 % (92.0-98.5); BG OXYHEMOGLOBIN 96.1 % (94.0-97.0); BG PCO2 39.6 mmHg (35.0-45.0); BG PH 7.371 (7.350-7.450); BG PO2 94.8 mmHg (75.0-100.0); BG SAMPLE SITE LEFT RADIAL; BG TOTAL HEMOGLOBIN 12.4 g/dL (12.0-18.0); BG VENT MODE NASAL CANNULA
[2019-08-24 08:29] LABS: HEMATOCRIT 27.4 % (36.0-48.0); HEMOGLOBIN 8.7 g/dL (12.0-16.0)
[2019-08-24] MEDS ORDERED: PHENYLEPHRINE 40 MG in SODIUM CHLORIDE 0.9% 246 ML IV PRN (09:03)
[2019-08-24] MEDS: BUDESONIDE 0.5MG/2ML NEB HHN SCH ×2 (09:07→21:05)
[2019-08-24] MEDS ORDERED: DEXT 10%/0.9% NACL 1,000 ML IV SCH ×2 (09:15)
[2019-08-24] MEDS: NOREPINEPHRINE 16 MG in SODIUM CHLORIDE 0.9% 234 ML IV PRN (10:50)
[2019-08-24] MEDS: DEXT 10% IV SCH (12:11)
[2019-08-24] MEDS: SODIUM CHLORIDE IV SCH (12:11)
[2019-08-24] MEDS: WATER IV SCH (12:11)
[2019-08-24 12:20] LABS: HEMATOCRIT 28.3 % (36.0-48.0)
[2019-08-24] MEDS ORDERED: DOXYCYCLINE 100 MG in DEXT 5% WATER 100 ML IV SCH (13:00)
[2019-08-24] MEDS ORDERED: MIDAZOLAM HCL 5 MG/5 ML VIAL ONE (13:53)
[2019-08-24] MEDS ORDERED: FENTANYL CITRATE/PF 50MCG/ML 2ML VIAL ONE (13:53)
[2019-08-24] MEDS ORDERED: MIDAZOLAM HCL 2 MG/2 ML VIAL IV ONE (14:11)
[2019-08-24 19:03] LABS: HEMATOCRIT 27.8 % (36.0-48.0); HEMOGLOBIN 8.5 g/dL (12.0-16.0)
[2019-08-25] VITALS (102 sets, daily range): BP systolic 56–144; BP diastolic 22–97
[2019-08-25 00:09] LABS: HEMOGLOBIN 8.9 g/dL (12.0-16.0)
[2019-08-25] MEDS: PIPERACILLIN/TAZOBACTAM 2.25 G in DEXTROSE 5% WATER 50 ML IV SCH ×3 (01:37→18:31)
[2019-08-25] MEDS: NOREPINEPHRINE 16 MG in SODIUM CHLORIDE 0.9% 234 ML IV PRN (01:38)
[2019-08-25] MEDS: IPRATROPIUM/ALBUTEROL 0.5-3(2.5)MG/3ML NEB HHN SCH ×4 (02:28→20:18)
[2019-08-25] MEDS: BLOOD SUGAR DIAGNOSTIC STRIP TEST SCH ×5 (04:47→20:30)
[2019-08-25 06:57] LABS: HEMATOCRIT. 28.6 % (36.0-48.0); HEMOGLOBIN. 8.9 g/dL (12.0-16.0); MEAN CORPUSCULAR HEMOGLOBIN 24.6 pg (28.0-32.0); MEAN CORPUSCULAR VOLUME 78.9 fL (81.0-99.0); MEAN PLATELET VOLUME 6.5 fl (7.4-10.4); PLATELET 283 x1000/uL (130-400); RED BLOOD CELL COUNT 3.62 mill/uL (4.2-5.4); RED CELL DISTRIBUTION WIDTH 33.5 % (11.6-14.6)
[2019-08-25 07:05] LABS: CHLORIDE 101 mEq/L (98-107)
[2019-08-25 07:11] LABS: PHOSPHORUS 5.1 mg/dL (2.5-4.9)
[2019-08-25] MEDS: BUDESONIDE 0.5MG/2ML NEB HHN SCH ×2 (07:26→20:18)
[2019-08-25] MEDS: PANTOPRAZOLE SODIUM 40 MG/VIAL IV SCH ×2 (08:22→16:22)
[2019-08-25 09:04] LABS: BG BASE EXCESS -9.4 mmol/L (-2.0-2.0); BG CARBOXYHEMOGLOBIN 0.8 % (0.5-1.5); BG DEOXYHEMOGLOBIN 4.2 % (0.0-5.0); BG FRACTION INSPIRED OXYGEN 21; BG HCO3 ACT 14.5 mmol/L (22.0-26.0); BG METHEMOGLOBIN 0.3 % (0.0-1.5); BG OXYGEN SATURATION 95.8 % (92.0-98.5); BG OXYHEMOGLOBIN 94.7 % (94.0-97.0); BG PCO2 25.5 mmHg (35.0-45.0); BG PH 7.373 (7.350-7.450); BG PO2 83.7 mmHg (75.0-100.0); BG SAMPLE SITE RIGHT BRACHIAL; BG TOTAL HEMOGLOBIN 9.4 g/dL (12.0-18.0); BG VENT MODE ROOM AIR
[2019-08-25 10:57] LABS: NUCLEATED RED BLOOD CELLS 3 /100 WBC; PLATELET ESTIMATE NORMAL
[2019-08-25] MEDS ORDERED: ALBUMIN HUMAN 25GM/100ML (25%) IV NR (12:33)
[2019-08-25 13:21] LABS: HEMATOCRIT 29.6 % (36.0-48.0); HEMOGLOBIN 9.2 g/dL (12.0-16.0)
[2019-08-25] MEDS: DEXT 10% IV SCH (14:56)
[2019-08-25] MEDS: WATER IV SCH (14:56)
[2019-08-25] MEDS: SODIUM CHLORIDE IV SCH (14:56)
[2019-08-25] MEDS ORDERED: NOREPINEPHRINE 16 MG in SODIUM CHLORIDE 0.9% 234 ML IV PRN (16:00)
[2019-08-25] MEDS ORDERED: VANCOMYCIN 750 MG PREMIX 150 ML IV NR (17:00)
[2019-08-25 20:05] LABS: HEMATOCRIT 28.9 % (36.0-48.0)
[2019-08-26] VITALS (60 sets, daily range): BP systolic 40–187; BP diastolic 27–104
[2019-08-26 00:35] LABS: HEMOGLOBIN 8.6 g/dL (12.0-16.0)
[2019-08-26] MEDS: IPRATROPIUM/ALBUTEROL 0.5-3(2.5)MG/3ML NEB HHN SCH ×4 (00:56→20:12)
[2019-08-26] MEDS: PIPERACILLIN/TAZOBACTAM 2.25 G in DEXTROSE 5% WATER 50 ML IV SCH ×3 (02:10→17:40)
[2019-08-26] MEDS: BLOOD SUGAR DIAGNOSTIC STRIP TEST SCH ×6 (04:59→20:00)
[2019-08-26 06:51] LABS: HEMATOCRIT. 27.1 % (36.0-48.0); HEMOGLOBIN. 8.5 g/dL (12.0-16.0); MEAN CORPUSCULAR HEMOGLOBIN 24.7 pg (28.0-32.0); MEAN CORPUSCULAR VOLUME 78.5 fL (81.0-99.0); MEAN PLATELET VOLUME 6.6 fl (7.4-10.4); PLATELET 223 x1000/uL (130-400); RED BLOOD CELL COUNT 3.46 mill/uL (4.2-5.4); RED CELL DISTRIBUTION WIDTH 33.5 % (11.6-14.6)
[2019-08-26 07:00] LABS: CHLORIDE 107 mEq/L (98-107)
[2019-08-26] MEDS: BUDESONIDE 0.5MG/2ML NEB HHN SCH (08:03)
[2019-08-26] MEDS: MORPHINE SULFATE 2 MG/ML CPJ (NOT FOR IM USE) IV PRN ×3 (09:14→21:58)
[2019-08-26] MEDS: PANTOPRAZOLE SODIUM 40 MG/VIAL IV SCH ×2 (09:39→17:30)
[2019-08-26 12:35] LABS: HEMATOCRIT 26.6 % (36.0-48.0); HEMOGLOBIN 8.3 g/dL (12.0-16.0)
[2019-08-26] MEDS: DIPHENHYDRAMINE 50MG/ML VIAL IV PRN ×2 (13:27→23:57)
[2019-08-26] MEDS: SODIUM CHLORIDE IV SCH (15:16)
[2019-08-26] MEDS: DEXT 10% IV SCH (15:16)
[2019-08-26] MEDS: WATER IV SCH (15:16)
[2019-08-26 15:49] LABS: NUCLEATED RED BLOOD CELLS 2 /100 WBC
[2019-08-26 15:50] LABS: PLATELET ESTIMATE NORMAL
[2019-08-26] MEDS: MIDODRINE HCL 5MG TABLET PO SCH (17:30)
[2019-08-26] MEDS: ONDANSETRON HCL 4MG/2ML INJ IV PRN (20:45)
[2019-08-26 23:55] LABS: HEMATOCRIT 27.9 % (36.0-48.0); HEMOGLOBIN 8.6 g/dL (12.0-16.0)
[2019-08-27] VITALS (66 sets, daily range): BP systolic 71–126; BP diastolic 24–82
[2019-08-27] MEDS: IPRATROPIUM/ALBUTEROL 0.5-3(2.5)MG/3ML NEB HHN SCH ×6 (02:12→20:28)
[2019-08-27] MEDS: MORPHINE SULFATE 2 MG/ML CPJ (NOT FOR IM USE) IV PRN (03:55)
[2019-08-27] MEDS: ONDANSETRON HCL 4MG/2ML INJ IV PRN (03:55)
[2019-08-27] MEDS: BLOOD SUGAR DIAGNOSTIC STRIP TEST SCH ×6 (04:03→20:38)
[2019-08-27] MEDS: PIPERACILLIN/TAZOBACTAM 2.25 G in DEXTROSE 5% WATER 50 ML IV SCH ×3 (04:03→17:30)
[2019-08-27 05:51] LABS: HEMATOCRIT. 26.9 % (36.0-48.0); HEMOGLOBIN. 8.4 g/dL (12.0-16.0); MEAN CORPUSCULAR HEMOGLOBIN 24.7 pg (28.0-32.0); MEAN CORPUSCULAR VOLUME 79.1 fL (81.0-99.0); MEAN PLATELET VOLUME 8.2 fl (7.4-10.4); PLATELET 187 x1000/uL (130-400); RED CELL DISTRIBUTION WIDTH 33.7 % (11.6-14.6)
[2019-08-27 05:52] LABS: CHLORIDE 107 mEq/L (98-107)
[2019-08-27 05:58] LABS: PHOSPHORUS 4.5 mg/dL (2.5-4.9)
[2019-08-27 08:23] LABS: NUCLEATED RED BLOOD CELLS 1 /100 WBC; PLATELET ESTIMATE NORMAL
[2019-08-27] MEDS: MIDODRINE HCL 5MG TABLET PO SCH ×3 (09:47→17:29)
[2019-08-27] MEDS: PANTOPRAZOLE SODIUM 40 MG/VIAL IV SCH ×2 (09:47→17:29)
[2019-08-27] MEDS ORDERED: VANCOMYCIN 500 MG PREMIX 100 ML IV SCH (21:00)
[2019-08-28] VITALS (12 sets, daily range): BP systolic 94–131; BP diastolic 57–84
[2019-08-28] MEDS: BLOOD SUGAR DIAGNOSTIC STRIP TEST SCH ×6 (00:10→21:00)
[2019-08-28] MEDS: IPRATROPIUM/ALBUTEROL 0.5-3(2.5)MG/3ML NEB HHN SCH ×6 (01:10→20:51)
[2019-08-28] MEDS: PIPERACILLIN/TAZOBACTAM 2.25 G in DEXTROSE 5% WATER 50 ML IV SCH ×3 (03:09→18:07)
[2019-08-28 06:07] LABS: HEMATOCRIT. 27.2 % (36.0-48.0); HEMOGLOBIN. 8.5 g/dL (12.0-16.0); MEAN CORPUSCULAR HEMOGLOBIN 24.5 pg (28.0-32.0); MEAN CORPUSCULAR VOLUME 78.3 fL (81.0-99.0); MEAN PLATELET VOLUME 8.5 fl (7.4-10.4); PLATELET 172 x1000/uL (130-400); RED BLOOD CELL COUNT 3.47 mill/uL (4.2-5.4)
[2019-08-28 06:13] LABS: CHLORIDE 108 mEq/L (98-107)
[2019-08-28 06:19] LABS: PHOSPHORUS 5.1 mg/dL (2.5-4.9)
[2019-08-28] MEDS: MIDODRINE HCL 5MG TABLET PO SCH ×3 (08:32→18:07)
[2019-08-28] MEDS: PANTOPRAZOLE SODIUM 40 MG/VIAL IV SCH ×2 (08:32→18:08)
[2019-08-28 16:41] LABS: PLATELET ESTIMATE NORMAL
[2019-08-29] VITALS (12 sets, daily range): BP systolic 84–141; BP diastolic 36–79
[2019-08-29] MEDS: IPRATROPIUM/ALBUTEROL 0.5-3(2.5)MG/3ML NEB HHN SCH ×5 (00:33→21:05)
[2019-08-29] MEDS: PIPERACILLIN/TAZOBACTAM 2.25 G in DEXTROSE 5% WATER 50 ML IV SCH ×3 (01:50→17:18)
[2019-08-29] MEDS: DIPHENHYDRAMINE 50MG/ML VIAL IV PRN (04:50)
[2019-08-29 07:00] LABS: HEMATOCRIT. 25.3 % (36.0-48.0); MEAN CORPUSCULAR HEMOGLOBIN 24.6 pg (28.0-32.0); MEAN CORPUSCULAR VOLUME 78.2 fL (81.0-99.0); MEAN PLATELET VOLUME 8.2 fl (7.4-10.4); PLATELET 151 x1000/uL (130-400); RED BLOOD CELL COUNT 3.24 mill/uL (4.2-5.4); RED CELL DISTRIBUTION WIDTH 33.2 % (11.6-14.6)
[2019-08-29 07:30] LABS: PHOSPHORUS 4.6 mg/dL (2.5-4.9)
[2019-08-29] MEDS: BLOOD SUGAR DIAGNOSTIC STRIP TEST SCH ×4 (08:11→20:40)
[2019-08-29] MEDS: MIDODRINE HCL 5MG TABLET PO SCH ×4 (09:10→17:18)
[2019-08-29] MEDS: PANTOPRAZOLE SODIUM 40 MG/VIAL IV SCH ×2 (09:11→17:18)
[2019-08-29] MEDS: ONDANSETRON HCL 4MG/2ML INJ IV PRN (09:30)
[2019-08-29] MEDS: DEXT 5%/0.45% NACL 1000ML 1,000 ML IV SCH (15:12)
[2019-08-29 16:09] LABS: PLATELET ESTIMATE NORMAL
[2019-08-29 18:45] LABS: HEPATITIS B SURFACE ANTIGEN NEGATIVE
[2019-08-29 19:15] LABS: HEPATITIS A AB IGM NEGATIVE (NEGATIVE)
[2019-08-30] VITALS (12 sets, daily range): BP systolic 106–145; BP diastolic 68–77
[2019-08-30] MEDS: IPRATROPIUM/ALBUTEROL 0.5-3(2.5)MG/3ML NEB HHN SCH ×6 (01:12→20:17)
[2019-08-30] MEDS: PIPERACILLIN/TAZOBACTAM 2.25 G in DEXTROSE 5% WATER 50 ML IV SCH (02:42)
[2019-08-30] MEDS: BLOOD SUGAR DIAGNOSTIC STRIP TEST SCH ×4 (07:30→21:26)
[2019-08-30] MEDS: PANTOPRAZOLE SODIUM 40 MG/VIAL IV SCH ×2 (08:35→18:22)
[2019-08-30] MEDS: MIDODRINE HCL 5MG TABLET PO SCH ×3 (08:39→17:00)
[2019-08-30 10:02] LABS: HEMOGLOBIN. 8.2 g/dL (12.0-16.0); MEAN CORPUSCULAR HEMOGLOBIN 24.1 pg (28.0-32.0); MEAN PLATELET VOLUME 8.4 fl (7.4-10.4); PLATELET 168 x1000/uL (130-400); RED BLOOD CELL COUNT 3.41 mill/uL (4.2-5.4)
[2019-08-30 10:27] LABS: PHOSPHORUS 5.4 mg/dL (2.5-4.9)
[2019-08-30 12:59] LABS: NUCLEATED RED BLOOD CELLS 4 /100 WBC
[2019-08-30 13:02] LABS: PLATELET ESTIMATE NORMAL
[2019-08-30] MEDS: DEXT 5%/0.45% NACL 1000ML 1,000 ML IV SCH (14:46)
[2019-08-30] MEDS ORDERED: HYDROCODONE/ACETAMINOPHEN 5/325MG TABLET PO PRN (15:30)
[2019-08-30] MEDS: CARVEDILOL 3.125 MG TABLET PO SCH (21:00)
[2019-08-31] VITALS (9 sets, daily range): BP systolic 93–107; BP diastolic 55–67
[2019-08-31] MEDS: IPRATROPIUM/ALBUTEROL 0.5-3(2.5)MG/3ML NEB HHN SCH ×6 (00:59→20:56)
[2019-08-31] MEDS: ONDANSETRON HCL 4MG/2ML INJ IV PRN ×2 (03:09→09:20)
[2019-08-31 05:11] LABS: HIV SCREEN 4G Non Reactive (Non Reactive)
[2019-08-31 06:35] LABS: HEMATOCRIT. 28.6 % (36.0-48.0); HEMOGLOBIN. 8.7 g/dL (12.0-16.0); MEAN CORPUSCULAR HEMOGLOBIN 24.5 pg (28.0-32.0); MEAN CORPUSCULAR VOLUME 80.1 fL (81.0-99.0); MEAN PLATELET VOLUME 8.5 fl (7.4-10.4); PLATELET 157 x1000/uL (130-400); RED BLOOD CELL COUNT 3.57 mill/uL (4.2-5.4); RED CELL DISTRIBUTION WIDTH 33.4 % (11.6-14.6)
[2019-08-31] MEDS: BLOOD SUGAR DIAGNOSTIC STRIP TEST SCH ×4 (07:30→20:41)
[2019-08-31] MEDS: MIDODRINE HCL 5MG TABLET PO SCH ×3 (08:37→17:00)
[2019-08-31] MEDS: PANTOPRAZOLE SODIUM 40 MG/VIAL IV SCH ×2 (08:37→17:33)
[2019-08-31] MEDS: CARVEDILOL 3.125 MG TABLET PO SCH ×2 (08:38→20:48)
[2019-08-31 09:10] LABS: PLATELET ESTIMATE NORMAL
[2019-08-31] MEDS: DEXT 5%/0.45% NACL 1000ML 1,000 ML IV SCH (12:19)
[2019-08-31] MEDS ORDERED: VANCOMYCIN 500 MG PREMIX 100 ML IV NR (14:00)
[2019-08-31 16:24] LABS: BG CARBOXYHEMOGLOBIN 0.3 % (0.5-1.5); BG FRACTION INSPIRED OXYGEN 21; BG HCO3 ACT 21.1 mmol/L (22.0-26.0); BG METHEMOGLOBIN 0.3 % (0.0-1.5); BG OXYHEMOGLOBIN 95.4 % (94.0-97.0); BG PCO2 33.6 mmHg (35.0-45.0); BG PH 7.415 (7.350-7.450); BG PO2 85.9 mmHg (75.0-100.0); BG SAMPLE SITE RIGHT BRACHIAL; BG TOTAL HEMOGLOBIN 9.2 g/dL (12.0-18.0); BG VENT MODE ROOM AIR
[2019-09-01] VITALS: BP 114/82
[2019-09-01] MEDS: IPRATROPIUM/ALBUTEROL 0.5-3(2.5)MG/3ML NEB HHN SCH ×6 (00:39→21:30)
[2019-09-01 04:00] VITALS: BP 115/73
[2019-09-01] MEDS: BLOOD SUGAR DIAGNOSTIC STRIP TEST SCH ×4 (06:55→20:44)
[2019-09-01 07:54] LABS: HEMATOCRIT. 25.1 % (36.0-48.0); HEMOGLOBIN. 7.7 g/dL (12.0-16.0); MEAN CORPUSCULAR HEMOGLOBIN 24.3 pg (28.0-32.0); MEAN CORPUSCULAR VOLUME 79.4 fL (81.0-99.0); MEAN PLATELET VOLUME 8.3 fl (7.4-10.4); PLATELET 148 x1000/uL (130-400); RED BLOOD CELL COUNT 3.16 mill/uL (4.2-5.4); RED CELL DISTRIBUTION WIDTH 33.2 % (11.6-14.6)
[2019-09-01 08:01] VITALS: BP 138/87
[2019-09-01 08:18] LABS: PHOSPHORUS 4.5 mg/dL (2.5-4.9)
[2019-09-01] MEDS: PANTOPRAZOLE SODIUM 40 MG/VIAL IV SCH ×2 (08:19→17:03)
[2019-09-01] MEDS: CARVEDILOL 3.125 MG TABLET PO SCH ×2 (08:20→20:44)
[2019-09-01] MEDS: MIDODRINE HCL 5MG TABLET PO SCH ×3 (08:20→17:00)
[2019-09-01 11:40] VITALS: BP 123/78
[2019-09-01] MEDS: DEXT 5%/0.45% NACL 1000ML 1,000 ML IV SCH (13:00)
[2019-09-01 13:31] LABS: NUCLEATED RED BLOOD CELLS 3 /100 WBC; PLATELET ESTIMATE NORMAL
[2019-09-01 16:27] VITALS: BP 128/76
[2019-09-01] MEDS ORDERED: DEXTROSE 50% WATER 50ML SYRINGE IV NR (17:56)
[2019-09-01 20:00] VITALS: BP 106/61
[2019-09-02] VITALS: BP 107/75
[2019-09-02] MEDS: IPRATROPIUM/ALBUTEROL 0.5-3(2.5)MG/3ML NEB HHN SCH ×6 (00:06→20:11)
[2019-09-02 04:00] VITALS: BP 127/54
[2019-09-02] MEDS: BLOOD SUGAR DIAGNOSTIC STRIP TEST SCH ×4 (06:25→20:55)
[2019-09-02 06:38] LABS: HEMATOCRIT. 25.4 % (36.0-48.0); HEMOGLOBIN. 7.8 g/dL (12.0-16.0); MEAN CORPUSCULAR HEMOGLOBIN 24.5 pg (28.0-32.0); MEAN CORPUSCULAR VOLUME 79.1 fL (81.0-99.0); MEAN PLATELET VOLUME 8.5 fl (7.4-10.4); PLATELET 142 x1000/uL (130-400); RED CELL DISTRIBUTION WIDTH 32.6 % (11.6-14.6)
[2019-09-02 08:00] VITALS: BP 90/45
[2019-09-02 08:08] LABS: PHOSPHORUS 5.2 mg/dL (2.5-4.9)
[2019-09-02] MEDS: CARVEDILOL 3.125 MG TABLET PO SCH ×2 (08:45→20:50)
[2019-09-02] MEDS: PANTOPRAZOLE SODIUM 40 MG/VIAL IV SCH ×2 (09:08→17:56)
[2019-09-02] MEDS: MIDODRINE HCL 5MG TABLET PO SCH ×3 (09:08→17:00)
[2019-09-02 12:00] VITALS: BP 110/53
[2019-09-02 16:00] VITALS: BP 115/72
[2019-09-02 19:04] LABS: NUCLEATED RED BLOOD CELLS 2 /100 WBC; PLATELET ESTIMATE NORMAL
[2019-09-02 20:00] VITALS: BP 119/61
[2019-09-02] MEDS: LORAZEPAM 2MG/ML CPJ IV PRN (20:50)
[2019-09-02] MEDS: DEXT 5%/0.45% NACL 1000ML 1,000 ML IV SCH (20:50)
[2019-09-03] VITALS: BP 115/68
[2019-09-03] MEDS: IPRATROPIUM/ALBUTEROL 0.5-3(2.5)MG/3ML NEB HHN SCH ×6 (00:52→22:00)
[2019-09-03 04:00] VITALS: BP 119/65
[2019-09-03] MEDS: BLOOD SUGAR DIAGNOSTIC STRIP TEST SCH ×4 (06:47→21:55)
[2019-09-03 06:58] LABS: HEMOGLOBIN. 7.8 g/dL (12.0-16.0); MEAN CORPUSCULAR HEMOGLOBIN 24.9 pg (28.0-32.0); MEAN CORPUSCULAR VOLUME 79.7 fL (81.0-99.0); MEAN PLATELET VOLUME 8.5 fl (7.4-10.4); PLATELET 130 x1000/uL (130-400); RED CELL DISTRIBUTION WIDTH 32.8 % (11.6-14.6)
[2019-09-03 07:23] LABS: RED BLOOD CELL COUNT 3.13 mill/uL (4.2-5.4)
[2019-09-03 08:00] VITALS: BP 105/57
[2019-09-03 08:04] LABS: PHOSPHORUS 5.5 mg/dL (2.5-4.9)
[2019-09-03] MEDS: CARVEDILOL 3.125 MG TABLET PO SCH ×2 (09:00→21:57)
[2019-09-03] MEDS: MIDODRINE HCL 5MG TABLET PO SCH ×3 (09:14→17:00)
[2019-09-03] MEDS: PANTOPRAZOLE SODIUM 40 MG/VIAL IV SCH ×2 (09:14→17:33)
[2019-09-03 12:00] VITALS: BP 153/72
[2019-09-03 16:00] VITALS: BP 128/70
[2019-09-03 17:56] LABS: NUCLEATED RED BLOOD CELLS 4 /100 WBC; PLATELET ESTIMATE NORMAL
[2019-09-03 20:00] VITALS: BP 109/62
[2019-09-03] MEDS: LORAZEPAM 2MG/ML CPJ IV PRN (21:57)
[2019-09-04] VITALS (11 sets, daily range): BP systolic 52–122; BP diastolic 27–70
[2019-09-04] MEDS: DEXT 5%/0.45% NACL 1000ML 1,000 ML IV SCH (00:57)
[2019-09-04] MEDS: IPRATROPIUM/ALBUTEROL 0.5-3(2.5)MG/3ML NEB HHN SCH ×5 (01:12→22:28)
[2019-09-04 06:32] LABS: HEMATOCRIT. 25.7 % (36.0-48.0); HEMOGLOBIN. 7.9 g/dL (12.0-16.0); MEAN CORPUSCULAR HEMOGLOBIN 24.5 pg (28.0-32.0); MEAN CORPUSCULAR VOLUME 79.5 fL (81.0-99.0); MEAN PLATELET VOLUME 8.4 fl (7.4-10.4); PLATELET 116 x1000/uL (130-400); RED BLOOD CELL COUNT 3.23 mill/uL (4.2-5.4); RED CELL DISTRIBUTION WIDTH 32.5 % (11.6-14.6)
[2019-09-04] MEDS: BLOOD SUGAR DIAGNOSTIC STRIP TEST SCH (06:49)
[2019-09-04 07:43] LABS: PHOSPHORUS 6.2 mg/dL (2.5-4.9)
[2019-09-04] MEDS ORDERED: DEXT 10%/0.9% NACL 1,000 ML IV SCH (08:45)
[2019-09-04] MEDS: PANTOPRAZOLE SODIUM 40 MG/VIAL IV SCH ×2 (08:54→17:16)
[2019-09-04] MEDS: CARVEDILOL 3.125 MG TABLET PO SCH ×2 (08:55→21:30)
[2019-09-04] MEDS: MIDODRINE HCL 5MG TABLET PO SCH ×3 (08:56→17:17)
[2019-09-04] MEDS ORDERED: SODIUM CHLORIDE 23.4% 154 MEQ in DEXT 10% WATER 1,000 ML IV SCH (10:00)
[2019-09-04 13:25] LABS: NUCLEATED RED BLOOD CELLS 5 /100 WBC; PLATELET ESTIMATE SLIGHTLY DECREASED
[2019-09-04] MEDS ORDERED: SODIUM CHLORIDE 0.9% 1000ML BAG (SEPSIS BOLUS) IV NR (20:15)
[2019-09-04] MEDS ORDERED: NOREPINEPHRINE 4 MG in DEXT 5% WATER 246 ML IV ONE (20:15)
[2019-09-04] MEDS ORDERED: NOREPINEPHRINE 16 MG in DEXTROSE 5% WATER 250 ML IV PRN (21:15)
[2019-09-05] VITALS (59 sets, daily range): BP systolic 68–127; BP diastolic 19–102
[2019-09-05] MEDS: IPRATROPIUM/ALBUTEROL 0.5-3(2.5)MG/3ML NEB HHN SCH ×5 (00:08→18:02)
[2019-09-05 06:05] LABS: HEMOGLOBIN. 7.7 g/dL (12.0-16.0); MEAN CORPUSCULAR HEMOGLOBIN 24.9 pg (28.0-32.0); MEAN CORPUSCULAR VOLUME 80.8 fL (81.0-99.0); MEAN PLATELET VOLUME 8.4 fl (7.4-10.4); PLATELET 126 x1000/uL (130-400); RED CELL DISTRIBUTION WIDTH 32.6 % (11.6-14.6)
[2019-09-05] MEDS: CARVEDILOL 3.125 MG TABLET PO SCH (07:47)
[2019-09-05] MEDS: MIDODRINE HCL 5MG TABLET PO SCH ×4 (09:00→17:00)
[2019-09-05] MEDS: PANTOPRAZOLE SODIUM 40 MG/VIAL IV SCH ×2 (09:27→17:00)
[2019-09-05 11:43] LABS: BG BASE EXCESS -7.7 mmol/L (-2.0-2.0); BG CARBOXYHEMOGLOBIN 0.4 % (0.5-1.5); BG DEOXYHEMOGLOBIN 2.3 % (0.0-5.0); BG FRACTION INSPIRED OXYGEN 21; BG HCO3 ACT 16.6 mmol/L (22.0-26.0); BG METHEMOGLOBIN 0.3 % (0.0-1.5); BG OXYGEN SATURATION 97.7 % (92.0-98.5); BG PCO2 28.8 mmHg (35.0-45.0); BG PH 7.378 (7.350-7.450); BG SAMPLE SITE RIGHT BRACHIAL; BG TOTAL HEMOGLOBIN 7.8 g/dL (12.0-18.0); BG VENT MODE ROOM AIR
[2019-09-05 12:56] LABS: NUCLEATED RED BLOOD CELLS 13 /100 WBC
[2019-09-05 12:57] LABS: PLATELET ESTIMATE NORMAL
[2019-09-05] MEDS: MORPHINE SULFATE 2 MG/ML CPJ (NOT FOR IM USE) IV PRN ×2 (13:27→17:02)
== END 2019-09-05 20:07 | disposition hospice, inpatient (51) | DRG 871 ==
LOC: ER 21:03 → CVICU 22:43 → EDBEDREQTM 22:46 → EDBEDREQ 22:46 → EDBEDREQSVC 22:46 → ENRESERV 23:07 → 5EST 08-27 23:00 → 6WST 08-31 09:50 → CVICU 09-04 22:02
PROVIDERS: ADMIT Internal Medicine; ATTEND Internal Medicine
PROC: 30233N1 Transfusion of Nonautologous Red Blood Cells into Peripheral Vein, Percutaneous Approach (ICD-10-PCS; 2019-08-22)
PROC: 02HV33Z Insertion of Infusion Device into Superior Vena Cava, Percutaneous Approach (ICD-10-PCS; 2019-08-23)
PROC: B548ZZA Ultrasonography of Superior Vena Cava, Guidance (ICD-10-PCS; 2019-08-23)
PROC: 02HV33Z Insertion of Infusion Device into Superior Vena Cava, Percutaneous Approach (ICD-10-PCS; 2019-08-23)
PROC: B548ZZA Ultrasonography of Superior Vena Cava, Guidance (ICD-10-PCS; 2019-08-23)
PROC: 0DB58ZX Excision of Esophagus, Via Natural or Artificial Opening Endoscopic, Diagnostic (ICD-10-PCS; principal; 2019-08-24)
DX: A41.9 Sepsis, unspecified organism (principal); K22.11 Ulcer of esophagus with bleeding; I50.33 Acute on chronic diastolic (congestive) heart failure; J69.0 Pneumonitis due to inhalation of food and vomit; N18.6 End stage renal disease; N17.9 Acute kidney failure, unspecified; N39.0 Urinary tract infection, site not specified; E87.1 Hypo-osmolality and hyponatremia; D68.59 Other primary thrombophilia; E46 Unspecified protein-calorie malnutrition; I13.2 Hypertensive heart and chronic kidney disease with heart failure and with stage 5 chronic kidney disease, or end stage renal disease; R18.8 Other ascites; Z68.41 Body mass index [BMI] 40.0-44.9, adult; I27.20 Pulmonary hypertension, unspecified; E87.5 Hyperkalemia; E66.01 Morbid (severe) obesity due to excess calories; D50.9 Iron deficiency anemia, unspecified; K31.7 Polyp of stomach and duodenum; K74.60 Unspecified cirrhosis of liver; Z51.5 Encounter for palliative care; Z66 Do not resuscitate; E21.3 Hyperparathyroidism, unspecified; F32.9 Major depressive disorder, single episode, unspecified; G89.29 Other chronic pain; M54.5 Low back pain; K56.41 Fecal impaction; K43.9 Ventral hernia without obstruction or gangrene; R32 Unspecified urinary incontinence; I95.9 Hypotension, unspecified; J44.9 Chronic obstructive pulmonary disease, unspecified; Z82.49 Family history of ischemic heart disease and other diseases of the circulatory system; Z85.038 Personal history of other malignant neoplasm of large intestine; Z85.118 Personal history of other malignant neoplasm of bronchus and lung; Z85.43 Personal history of malignant neoplasm of ovary; Z86.718 Personal history of other venous thrombosis and embolism; Z87.19 Personal history of other diseases of the digestive system; Z87.442 Personal history of urinary calculi; Z90.49 Acquired absence of other specified parts of digestive tract; Z90.5 Acquired absence of kidney; Z99.2 Dependence on renal dialysis
CPT/HCPCS: 36415; 36600; 71045; 76705; 76770; 76937; 80048; 80053; 80202; 80320; 81003; 82105; 82140; 82248; 82270; 82375; 82378; 82533; 82805; 82962; 83605; 83735; 84100; 84145; 84443; 84484; 85014; 85018; 85025; 86705; 86706; 86709; 86803; 86850; 86900; 86920; 87340; 87389; 88305; 88312; 92610; 93005; 93970; 94640; 96365; 99291; C1725; C1752; C9113; J0610; J1200; J1815; J1940; J2060; J2250; J2270; J2354; J2405; J2543; J3010; J3370; J3490; J7030; J7040; J7042; J7050; J7060; J7131; J7611; J7620; J7626; P9016; P9047; A4315; G0480